=== PATIENT | female | born 1985 | race Caucasian/White ===

== ENCOUNTER 2018-09-21 12:48 | Emergency (ER) | payer MEDICAID, OTHER ==
[~2018-09-21] VITALS: Ht 162.6 cm; Wt 53.8 kg
[2018-09-21 13:13] VITALS: Ht 162.6 cm; Wt 53.8 kg
[2018-09-21] MEDS ORDERED: SOD CHLORIDE 0.9% 1,000 ML IV STA (13:39)
[2018-09-21] MEDS ORDERED: LORAZEPAM 2 MG INJ IV ONE (14:00)
[2018-09-21] MEDS ORDERED: KETOROLAC 30 MG INJ IV STA (14:02)
--- NOTE | 2018-09-21 14:02 | ERD ---
ER Documentation Chief Complaint Chief Complaint cp, sob, dizziness x 2 day HPI This is a 32-year-old female with no past medical history that presents to the emergency department very tearful stating that she has been complaining of persistent bilateral chest pain which she describes as a dull achy sensation for 2 days. She indicates that she is felt nauseous dizzy lightheaded but denies a headache. She denies any abdominal pain. She denies any associated symptoms of diaphoresis. She does not smoke tobacco and has no family history of coronary artery disease. The patient does indicate she is been undergoing a significant amount of stress. She states she is also experiencing shortness of breath and palpitations. She denies any recent travel or prolonged immobilization. Shortness of breath has been persistent and is not worse with exertion. She denies any calf tenderness. She is not on oral contraceptive pills. ROS All systems reviewed and are negative except as per history of present illness. Physical Exam Vitals Vital Signs Date Temp Pulse Resp B/P (MAP) Pulse Ox O2 O2 Flow FiO2 Time Delivery Rate 09/21/18 100.2 97 18 161/95 99 13:13 (117) Physical Exam Constitutional:Well-developed. Well-nourished. Patient tearful. Very anxious. HEENT:Normocephalic. Atraumatic.Pupils were equal round reactive to light. Moist mucous membranes.No tonsillar exudates. Neck: No nuchal rigidity. No lymphadenopathy. No posterior cervical spine tenderness or step-offs. Respiratory: Not using accessory muscles of respiration.Lungs were clear to auscultation bilaterally. No rhonchi. No rales. No wheezing. Cardiovascular: Regular rate regular rhythm.No murmurs. No rubs were appreciated.S1, S2 normal. Distal pulses are palpable 2+ bilaterally. Bilateral reproducible chest wall tenderness with no crepitus no ecchymosis no flail chest GI: Abdomen was soft. Nontender. Non Distended. No pulsatile abdominal masses or bruits. No rebound. No guarding. Bowel sounds were present and normal. Muscle skeletal: Full range of motion of both the upper and lower extremities bilaterally.Normal muscle tone.No assymetrical calf tenderness or swelling. Skin: No petechia, no purpura. No lesions on the palms or the soles of the feet. No maculopapular rash. NEURO: Patient was alert, awake, orientated x3.No facial droop. Gait observed and normal with no ataxia.Speech had regular rate and rhythm. No focal neurological deficits. Results 24 hrs Laboratory Tests Test 09/21/18 13:49 White Blood Count Pending Red Blood Count Pending Hemoglobin Pending Hematocrit Pending Mean Corpuscular Volume Pending Mean Corpuscular Hemoglobin Pending Mean Corpuscular Hemoglobin Concent Pending Red Cell Distribution Width Pending Platelet Count Pending Mean Platelet Volume Pending Current Medications Medications Dose Sig/Farida Start Time Status Last (Trade) Ordered Route PRN Stop Time Admin Dose Reason Admin Sodium 1,000 ml @ Q1H STAT 09/21/18 Chloride 1,000 mls/hr IV 13:39 09/21/18 14:38 Lorazepam 1 mg ONCE ONCE 09/21/18 (Ativan) IV 14:00 09/21/18 14:01 Procedures/MDM The patient presented to the emergency department complaining of chest pain. My clinical evaluation and workup was to distinguish minor causes of chest pain from acute life threatening cardiopulmonary causes such as myocardial infarction, pulmonary embolism, aortic dissection, esophageal rupture, cardiac tamponade, The patient was placed on a residential monitor, continuous pulse oximetry and IV access established by nursing staff. The patient was given intravenous Ativan as she did appear to be also experiencing acute anxiety reaction as patient was very tearful and hyperventilating. 12 Lead EKG tracing ordered and reviewed by myself showed: Normal sinus rhythm of 90 bpm and no arrhythmia. PA interval normal. QRS duration normal. No ST segment elevation No ST segment depression. No changes consistent with acute ischemia. The patient was a low pretest probability according to the Wells criteria for pulmonary embolism. I obtained a d-dimer and this was normal my clinical suspicion was low for pulmonary embolism. The patient no physical exam findings to suggest congestive heart failure. The patients chest pain was reproduced by palpation and horizontal flexion of the arms. It was my clinical impression that the pain was a result of inflammation of the skin and subcutaneous structures of the chest wall versus myocardial ischemia. I felt the patient had low-risk chest pain and could therefore be safely discharged with close follow-up. Departure Diagnosis: Primary Impression: Costochondritis, acute Additional Impression: Acute anxiety Condition: MARY Solano MD Sep 21, 2018 14:02
[2018-09-21] MEDS ORDERED: IBUP-1542 PO (15:15)
[2018-09-21] MEDS ORDERED: MECLIZINE 12.5 MG TAB PO ONE (16:30)
[2018-09-21 16:49] VITALS: BP 132/84; PULSE 88; RESP 16
== END 2018-09-21 16:51 | disposition home or self-care (01) ==
LOC: E/R 12:48
DX: M94.0 Chondrocostal junction syndrome [Tietze] (principal); F41.9 Anxiety disorder, unspecified
CPT/HCPCS: 80053; 81025; 82550; 82553; 83690; 83880; 84484; 85025; 85378; 85610; 85730; 93005; 96374; 96375; J1885; J2060; J7030; Z7502; Z7610